=== PATIENT | male | born 1935 | race Caucasian/White ===

== ENCOUNTER → 2018-08-22 | Outpatient (CLI) | payer MEDICARE, BC ==
--- NOTE | 2018-08-22 13:16 | RAD ---
PQRS Compliance Statement: One or more of the following individualized dose reduction techniques were utilized for this examination: 1. Automated exposure control 2. Adjustment of the mA and/or kV according to patient size 3. Use of iterative reconstruction technique CT LOW DOSE LUNG SCREENING Clinical Indication: COPD Comparison: None. TECHNIQUE: Helical CT imaging of the chest is performed without IV contrast using low-dose technique. Findings: There is a left thyroid goiter measuring 1.9 x 2.6 cm. There is slight substernal extension. No mediastinal or axillary adenopathy. Limited evaluation of the mario without IV contrast, no obvious adenopathy. There is motion artifact in the mediastinum, presumably pulsation artifact. There is mild ectasia of the ascending thoracic aorta, diameter 3.8 cm. There is three-vessel coronary artery disease. Cardiac size normal, no pericardial effusion. There is no pleural effusion. There is moderate opacity dependently on the left in the mid trachea, image 50. There are several tiny calcified granulomas in the lungs. There is moderate emphysema in the bilateral lower lobes. There are bilateral peripheral reticular opacities throughout the lungs with a basilar predominance. These opacities are probably chronic. There is a groundglass nodule in the anterior left upper lobe measuring 7 mm, image 107. There is a groundglass opacity in the lateral left lower lobe that may be due to scarring, image 169. Cholelithiasis. Fatty replacement of the visualized pancreas head. No compression fracture in the thoracic spine. IMPRESSION: 1. Moderate emphysema in the bilateral lower lobes. 2. There is a 7 mm groundglass nodule in the left upper lobe. Recommend CT chest follow-up in 12 months. 3. There are basilar predominant peripheral reticular opacities throughout the lungs, probably chronic. 4. Left thyroid goiter. 5. Ectasia of the ascending thoracic aorta. 6. Cholelithiasis. Electronically signed by: Patric Hardy MD (08/22/2018 1:11 PM) [id number]
== END | disposition home or self-care (01) ==
LOC: CT 10:58
PROVIDERS: ATTEND Family Medicine
DX: J43.9 Emphysema, unspecified (principal); K80.20 Calculus of gallbladder without cholecystitis without obstruction; I25.10 Atherosclerotic heart disease of native coronary artery without angina pectoris; I77.810 Thoracic aortic ectasia; R91.8 Other nonspecific abnormal finding of lung field; E04.1 Nontoxic single thyroid nodule
CPT/HCPCS: G0297

== ENCOUNTER → 2018-09-12 | Outpatient (CLI) | payer MEDICARE, BC ==
--- NOTE | 2018-09-12 15:32 | RAD ---
Thyroid ultrasound, 09/12/2018: HISTORY: Left thyroid goiter on CT scan The thyroid gland was difficult to visualize sonographically in this patient. Its measured portions in the lower neck measured 2.2 x 0.7 x 0.6 cm on the right and 2.5 x 0.8 x 0.9 cm on the left. Correlation with the CT study shows that there is substernal extension on the left which is not visible sonographically. The substernal component demonstrated several calcifications. The visualized components in the lower neck are heterogeneous. There is a rounded 5 mm hypoechoic nodule in the lower pole of the right lobe of the gland. Its margins are smooth. There is considerable internal vascularity. No associated calcifications are evident. No other definite discrete thyroid nodule is identified. IMPRESSION: 1. Substernal extension of the left lobe of the thyroid gland containing calcifications as visualized on the recent CT study. This cannot be evaluated sonographically due to its low position. CT follow-up may be useful to establish stability, if clinically indicated. 2. Heterogeneous thyroid gland with a small hypervascular nodule in the lower pole of the right lobe. Electronically signed by: Wing Gordon MD (09/12/2018 3:29 PM) [facility]
== END | disposition home or self-care (01) ==
LOC: US 10:41
PROVIDERS: ATTEND Family Medicine
DX: E04.1 Nontoxic single thyroid nodule (principal); E07.89 Other specified disorders of thyroid
CPT/HCPCS: 76536

== ENCOUNTER 2019-07-12 12:45 | Emergency (ER) | payer MEDICARE, BC ==
[~2019-07-12] VITALS: Ht 170.2 cm; Wt 63.5 kg
--- NOTE | 2019-07-12 13:06 | PHYS DOC ---
Past History Past Medical History: Diabetes, High Cholesterol, Hypothyroid Past Surgical History: No Surgical History Smoking: Non-smoker Drug Use: None Adult General Chief Complaint Chief Complaint: ABDOMINAL PAIN HPI HPI Patient is a 83-year-old male presents with 3-4 days of lower abdominal pain. No vomiting, some mild nausea. No stool during this time frame, nor flatus. Patient was evaluated by his primary care physician earlier today and had a CT scan already performed that shows an obstruction of the small bowel. Patient has had no previous surgeries. Nothing makes the discomfort better or worse. Pain is currently a 6-7 out of 10. Patient was sent to the emergency department by his primary care physician for admission.[] Review of Systems Review of Systems Constitutional: Denies fever or chills [] Eyes: Denies change in visual acuity, redness, or eye pain [] HENT: Denies nasal congestion or sore throat [] Respiratory: Denies cough or shortness of breath [] Cardiovascular: No chest pain or palpitations[] GI: See history of present illness[] : Denies dysuria or hematuria [] Musculoskeletal: Denies back pain or joint pain [] Integument: Denies rash or skin lesions [] Neurologic: Denies headache, focal weakness or sensory changes [] Endocrine: Denies polyuria or polydipsia [] All other systems were reviewed and found to be within normal limits, except as documented in this note. Current Medications Current Medications Current Medications Medications (Trade) Dose Ordered Sig/[place]upe Start Time Stop Time Status Last Admin Dose Admin Sodium Chloride 1,000 ml @ 100 mls/hr Q10H 07/12/19 12:48 07/12/19 22:47 UNV Physical Exam Physical Exam Constitutional: Well developed, well nourished, no acute distress, non-toxic appearance. [] HENT: Normocephalic, atraumatic, bilateral external ears normal, oropharynx moist, no oral exudates, nose normal. [] Eyes: PERRLA, EOMI, conjunctiva normal, no discharge. [] Neck: Normal range of motion, no tenderness, supple, no stridor. [] Cardiovascular:Heart rate regular rhythm, no murmur [] Lungs & Thorax: Bilateral breath sounds clear to auscultation [] Abdomen: Tympanitic to percussion. Mild lower abdominal tenderness without any rebound, guarding, or rigidity, able to sit up and lie back without any difficulty. No masses, no pulsatile masses. [] Skin: Warm, dry, no erythema, no rash. [] Back: No tenderness, no CVA tenderness. [] Extremities: No tenderness, no cyanosis, no clubbing, ROM intact, no edema. [] Neurologic: Alert and oriented X 3, normal motor function, normal sensory function, no focal deficits noted. [] Psychologic: Affect normal, judgement normal, mood normal. [] EKG EKG [] Radiology/Procedures Radiology/Procedures CT performed earlier today as an outpatient. PROCEDURE: CT ABDOMEN PELVIS WO CONTRAST Examination: CT of the abdomen pelvis without contrast HISTORY: History of abdominal pain, constipation COMPARISON: None available TECHNIQUE: Axial CT images of the abdomen pelvis were performed without contrast. Coronal and sagittal reformats are performed. Exposure: One or more of the following individualized dose reduction techniques were utilized for this examination: 1. Automated exposure control 2. Adjustment of the mA and/or kV according to patient size 3. Use of iterative reconstruction technique FINDINGS: Mild bibasilar lung atelectasis is identified. No evidence of free air identified in the abdomen. The evaluation of the solid organs is limited due to lack of IV contrast. The evaluation of bowel is limited due to lack of oral contrast. The visualized noncontrasted liver, spleen, adrenals grossly appears unremarkable. Multiple gallstones identified within the gallbladder. Possible gallstone or calcification identified in the region of the cystic duct.. The stomach is mildly distended. Multiple dilated and fluid distended small bowel loops identified in the abdomen with at least 2 transition points, one in the right mid abdomen and the other possibly in the left lower quadrant of the abdomen. Closed-loop obstruction is not excluded. The appendix is normal. Feces and gas noted in the colon. Mild fat stranding identified about the small bowel loops. No evidence of intrarenal collecting system calculi or hydronephrosis. Urinary bladder is mildly distended. Moderate degenerative changes identified in the lumbar spine. IMPRESSION: 1. Findings consistent with high-grade small bowel obstruction. Closed-loop obstruction is not completely excluded. Correlate clinically. 2. Cholelithiasis. Gallstone or calcification identified in the cystic duct region.[] Course & Med Decision Making Course & Med Decision Making Pertinent Labs and Imaging studies reviewed. (See chart for details) Emergency department course: Patient arrived, laced in bed, and tolerated exam well. His CT scan performed earlier today was reviewed and as noted above. Findings and plan were discussed with the patient. Consultation was made with the hospitalist service, Dr. Johnston, at [facility]. He graciously accepted the patient for transfer. Patient was transferred in improved condition. Medical decision making: Patient has a small bowel obstruction as noted on CT sc an. He is being transferred for higher level of care.[] Dragon Disclaimer Dragon Disclaimer This electronic medical record was generated, in whole or in part, using a voice recognition dictation system. Departure Departure: Impression: Primary Impression: Small bowel obstruction Disposition: 05 TRANSFER OTHER Condition: IMPROVED Referrals: PALOMO KELLER MD (PCP) MARIA ELENA MARTINES DO Jul 12, 2019 13:06
[2019-07-12 13:23] LABS: BASO # 0.1 x10^3/uL (0.0-0.2); BASO % 1 % (0-3); EOS % 0 % (0-3); HEMATOCRIT 43.9 % (39.0-53.0); HEMOGLOBIN 14.7 g/dL (13.0-17.5); LYMPH # 0.5 x10^3/uL (1.0-4.8); LYMPH % 3 % (24-48); MEAN CORPUSCULAR HEMOGLOBIN 30 pg (25-35); MEAN CORPUSCULAR HGB CONC 33 g/dL (31-37); MEAN CORPUSCULAR VOLUME 91 fL (79-100); MONO # 0.9 x10^3/uL (0.0-1.1); MONO % 6 % (0-9); NEUT # 15.3 x10^3uL (1.8-7.7); NEUT % 91 % (31-73); PLATELET COUNT 285 x10^3/uL (140-400); RED BLOOD COUNT 4.84 x10^6/uL (4.30-5.70); RED CELL DISTRIBUTION WIDTH 13.7 % (11.5-14.5); WHITE BLOOD COUNT 16.8 x10^3/uL (4.0-11.0)
[2019-07-12] MEDS: IV NORMAL SALINE 1,000ML 1,000 ML IV SCH (13:26)
[2019-07-12] MEDS: MORPHINE SULFATE 2 MG/ML DISP.SYRIN. IV/SQ PRN (13:27)
[2019-07-12 13:30] LABS: CALCIUM 9.7 mg/dL (8.5-10.1); CREATININE 1.1 mg/dL (0.7-1.3); GFR 64.2
[2019-07-12 13:35] LABS: ALBUMIN 3.9 g/dL (3.4-5.0); ALBUMIN/GLOBULIN RATIO 1.1 (1.0-1.7); TOTAL BILIRUBIN 1.6 mg/dL (0.2-1.0); TOTAL PROTEIN 7.5 g/dL (6.4-8.2)
[2019-07-12 13:50] VITALS: BP 129/72
[2019-07-12 13:50] LABS: BILIRUBIN,URINE NEG (NEG); CLARITY,URINE CLEAR; COLOR,URINE YELLOW; GLUCOSE,URINE NEG (NEG); NITRITE,URINE NEG (NEG); UROBILINOGEN,URINE 0.2 mg/dL (0.2 mg/dL)
[2019-07-12 13:54] LABS: % BANDS 3 % (0-9); % LYMPHS 4 % (24-48); % MONOS 6 % (0-10); % SEGS 87 % (35-66)
[2019-07-12 13:55] LABS: ANISOCYTOSIS PRESENT; PLT ESTIMATE ADEQUATE (ADEQUATE)
== END 2019-07-12 14:10 | disposition short-term general hospital (02) ==
LOC: ER 12:45
DX: K56.609 Unspecified intestinal obstruction, unspecified as to partial versus complete obstruction (principal); E11.9 Type 2 diabetes mellitus without complications; E78.00 Pure hypercholesterolemia, unspecified; E03.9 Hypothyroidism, unspecified
CPT/HCPCS: 36415; 80053; 81003; 83690; 85007; 85025; 96374; 99285; J2270; J7030

== ENCOUNTER → 2019-07-12 | Outpatient (CLI) | payer MEDICARE, BC ==
--- NOTE | 2019-07-12 12:12 | RAD ---
Examination: CT of the abdomen pelvis without contrast HISTORY: History of abdominal pain, constipation COMPARISON: None available TECHNIQUE: Axial CT images of the abdomen pelvis were performed without contrast. Coronal and sagittal reformats are performed. Exposure: One or more of the following individualized dose reduction techniques were utilized for this examination: 1. Automated exposure control 2. Adjustment of the mA and/or kV according to patient size 3. Use of iterative reconstruction technique FINDINGS: Mild bibasilar lung atelectasis is identified. No evidence of free air identified in the abdomen. The evaluation of the solid organs is limited due to lack of IV contrast. The evaluation of bowel is limited due to lack of oral contrast. The visualized noncontrasted liver, spleen, adrenals grossly appears unremarkable. Multiple gallstones identified within the gallbladder. Possible gallstone or calcification identified in the region of the cystic duct.. The stomach is mildly distended. Multiple dilated and fluid distended small bowel loops identified in the abdomen with at least 2 transition points, one in the right mid abdomen and the other possibly in the left lower quadrant of the abdomen. Closed-loop obstruction is not excluded. The appendix is normal. Feces and gas noted in the colon. Mild fat stranding identified about the small bowel loops. No evidence of intrarenal collecting system calculi or hydronephrosis. Urinary bladder is mildly distended. Moderate degenerative changes identified in the lumbar spine. IMPRESSION: 1. Findings consistent with high-grade small bowel obstruction. Closed-loop obstruction is not completely excluded. Correlate clinically. 2. Cholelithiasis. Gallstone or calcification identified in the cystic duct region. FOR INTERNAL CODING PURPOSES Critical result: Findings discussed with PALOMO KELLER at 07/12/2019 12:02 PM. RESULT CODE: (C) Electronically signed by: Burak Moran MD (07/12/2019 12:09 PM) [facility]
== END | disposition home or self-care (01) ==
LOC: CT 10:34
PROVIDERS: ATTEND Family Medicine
DX: K80.20 Calculus of gallbladder without cholecystitis without obstruction (principal); K56.699 Other intestinal obstruction unspecified as to partial versus complete obstruction; J98.11 Atelectasis; K31.89 Other diseases of stomach and duodenum; M47.816 Spondylosis without myelopathy or radiculopathy, lumbar region
CPT/HCPCS: 74176

== ENCOUNTER 2019-08-15 07:36 | Emergency (ER) | payer MEDICARE, BC ==
[~2019-08-15] VITALS: Ht 172.7 cm; Wt 68.0 kg
[2019-08-15 08:23] LABS: HEMATOCRIT 23.5 % (39.0-53.0); HEMOGLOBIN 7.7 g/dL (13.0-17.5); RED BLOOD COUNT 2.55 x10^6/uL (4.30-5.70); RED CELL DISTRIBUTION WIDTH 14.7 % (11.5-14.5); WHITE BLOOD COUNT 6.1 x10^3/uL (4.0-11.0)
[2019-08-15 08:27] LABS: CALCIUM 8.3 mg/dL (8.5-10.1); CREATININE 0.7 mg/dL (0.7-1.3); GFR 108.2; POTASSIUM 4.3 mmol/L (3.5-5.1)
--- NOTE | 2019-08-15 08:56 | PHYS DOC ---
Past History Past Medical History: COPD, Diabetes, GERD, Hypothyroid Past Surgical History: No Surgical History Additional Past Surgical Histo: CATARACTS, RIGHT LOWER LEG Smoking: Non-smoker Alcohol Use: None Drug Use: None Adult General Chief Complaint Chief Complaint: ABNORMAL LABS HPI HPI Patient is a 83 year old male who presents with low hemoglobin. Moses had a recent bowel resection. He was seen in the clinic by a surgeon yesterday. He was found to have a hemoglobin of 6.9. He has no other complaints at this time. Review of Systems Review of Systems Constitutional: Denies fever or chills [] Eyes: Denies change in visual acuity, redness, or eye pain [] HENT: Denies nasal congestion or sore throat [] Respiratory: Denies cough or shortness of breath [] Cardiovascular: No additional information not addressed in HPI [] GI: Denies abdominal pain, nausea, vomiting, bloody stools or diarrhea [] : Denies dysuria or hematuria [] Musculoskeletal: Denies back pain or joint pain [] Integument: Denies rash or skin lesions [] Neurologic: Denies headache, focal weakness or sensory changes [] Endocrine: Denies polyuria or polydipsia [] All other systems were reviewed and found to be within normal limits, except as documented in this note. Family History Family History No pertinent family medical history was reported Current Medications Current Medications Current medications were reviewed Allergies Allergies Allergies Coded Allergies Type Severity Reaction Last Updated Verified Penicillins Allergy Unknown 07/12/19 Yes Physical Exam Physical Exam Constitutional: Well developed, well nourished, no acute distress, non-toxic appearance. [] HENT: Normocephalic, atraumatic Eyes: EOMI, conjunctiva normal, no discharge. [] Neck: Normal range of motion, no tenderness, supple, no stridor. [] Cardiovascular:Heart rate regular rhythm, Lungs & Thorax: Bilateral breath sounds clear to auscultation [] Abdomen: Bowel sounds normal, soft, no tenderness, no masses, no pulsatile masses. [] Well-healing abdominal wound, dry and well approximated with no [id number] Skin: Warm, dry, no erythema, no rash. [] Extremities: No tenderness, no cyanosis, no clubbing, ROM intact, no edema. [] Neurologic: Alert and oriented X 3, normal motor function, normal sensory function, no focal deficits noted. [] Psychologic: Affect normal, judgement normal, mood normal. [] Current Patient Data Vital Signs Vital Signs Date Time Temp Pulse Resp B/P (MAP) Pulse Ox O2 Delivery O2 Flow Rate FiO2 08/15/19 08:10 98.1 66 18 97 Lab Results Laboratory Tests Test 08/15/19 08:00 White Blood Count 6.1 x10^3/uL (4.0-11.0) Red Blood Count 2.55 x10^6/uL (4.30-5.70) L Hemoglobin 7.7 g/dL (13.0-17.5) L Hematocrit 23.5 % (39.0-53.0) L Mean Corpuscular Volume 92 fL (79-100) Mean Corpuscular Hemoglobin 30 pg (25-35) Mean Corpuscular Hemoglobin Concent 33 g/dL (31-37) Red Cell Distribution Width 14.7 % (11.5-14.5) H Platelet Count 181 x10^3/uL (140-400) Sodium Level 140 mmol/L (136-145) Potassium Level 4.3 mmol/L (3.5-5.1) Chloride Level 104 mmol/L (98-107) Carbon Dioxide Level 32 mmol/L (21-32) Anion Gap 4 (6-14) L Blood Urea Nitrogen 17 mg/dL (8-26) Creatinine 0.7 mg/dL (0.7-1.3) Estimated GFR (Cockcroft-Gault) 108.2 Glucose Level 71 mg/dL (70-99) Calcium Level 8.3 mg/dL (8.5-10.1) L EKG EKG [] Radiology/Procedures Radiology/Procedures [] Course & Med Decision Making Course & Med Decision Making Pertinent Labs and Imaging studies reviewed. (See chart for details) Dr. Luu was contacted by phone. Moses's history, physical and lab results were reviewed. No further intervention was recommended at this time. Dragon Disclaimer Dragon Disclaimer This electronic medical record was generated, in whole or in part, using a voice recognition dictation system. Departure Departure: Impression: Primary Impression: Encounter for medical screening examination Disposition: 01 HOME, SELF-CARE Condition: STABLE Referrals: PALOMO KELLER MD (PCP) Patient Instructions: Medical Screening Exam Additional Instructions: Moses was seen in the emergency department for medical screening exam. No emergency medical condition was found on history physical exam. He did have labs revealed a hemoglobin of 7.7. Dr. Luu, his surgeon, was contacted by phone. He is discharged in stable condition. He was advised follow-up with his primary care doctor as needed for further management. He is also advised to return to the emergency room if he develops new or worsening symptoms. PALOMO VÁSQUEZ MD Aug 15, 2019 08:56
== END 2019-08-15 11:17 | disposition home or self-care (01) ==
LOC: ER 07:36
DX: D64.9 Anemia, unspecified (principal); J44.9 Chronic obstructive pulmonary disease, unspecified; E11.9 Type 2 diabetes mellitus without complications; K21.9 Gastro-esophageal reflux disease without esophagitis; E03.9 Hypothyroidism, unspecified; Z98.49 Cataract extraction status, unspecified eye
CPT/HCPCS: 36415; 80048; 85027; 99284

== ENCOUNTER 2019-08-19 10:15 | Inpatient (IN) | payer MEDICARE, BC ==
[~2019-08-19] VITALS: Ht 170.2 cm; Wt 65.1 kg
--- NOTE | 2019-08-19 10:42 | PHYS DOC ---
Past History Past Medical History: COPD, Diabetes, GERD, Hypothyroid Past Surgical History: No Surgical History Additional Past Surgical Histo: CATARACTS, RIGHT LOWER LEG Smoking: Non-smoker Alcohol Use: None Drug Use: None Adult General Chief Complaint Chief Complaint: OTHER COMPLAINTS [facility] HPI 83-year-old male presents from his care facility with concerns over low hemoglobin. The patient recently had surgery for a bowel blockage. He was in this emergency room a few days ago with low hemoglobin. He was above transfusion threshold of 7. [facility] He presents today because they checked his hemoglobin today and they found it to be below 7. The patient tells me that he is feeling normal. He has no change in symptoms. He does not feel dizzy, short of breath, or have a headache. He denies blood in his stool. Denies fever or chills. Review of Systems Review of Systems Constitutional: Denies fever or chills [] Eyes: Denies change in visual acuity, redness, or eye pain [] HENT: Denies nasal congestion or sore throat [] Respiratory: Denies cough or shortness of breath [] Cardiovascular: No additional information not addressed in HPI [] GI: Denies abdominal pain, nausea, vomiting, bloody stools or diarrhea [] : Denies dysuria or hematuria [] Musculoskeletal: Denies back pain or joint pain [] Integument: Denies rash or skin lesions [] Neurologic: Denies headache, focal weakness or sensory changes [] Endocrine: Denies polyuria or polydipsia [] All other systems were reviewed and found to be within normal limits, except as documented in this note. Allergies Allergies Allergies Coded Allergies Type Severity Reaction Last Updated Verified Penicillins Allergy Unknown 07/12/19 Yes Physical Exam Physical Exam Constitutional: Well developed, well nourished, no acute distress, non-toxic appearance. [] HENT: Normocephalic, atraumatic, bilateral external ears normal, oropharynx moist, no oral exudates, nose normal. [] Eyes: PERRLA, EOMI, conjunctiva normal, no discharge. [] Neck: Normal range of motion, no tenderness, supple, no stridor. [] Cardiovascular:Heart rate regular rhythm, no murmur [] Lungs & Thorax: Bilateral breath sounds clear to auscultation [] Abdomen: Bowel sounds normal, soft, no tenderness, no masses, no pulsatile masses. [] Skin: Warm, dry, no erythema, no rash. [] Back: No tenderness, no CVA tenderness. [] Extremities: No tenderness, no cyanosis, no clubbing, ROM intact, 3+ pitting edema to the knees bilaterally. [] Neurologic: Alert and oriented X 3, normal motor function, normal sensory function, no focal deficits noted. [] Psychologic: Affect normal, judgement normal, mood normal. [] Current Patient Data Vital Signs Vital Signs Date Time Temp Pulse Resp B/P (MAP) Pulse Ox O2 Delivery O2 Flow Rate FiO2 08/19/19 10:33 97.8 77 18 113/62 (79) 98 Room Air EKG EKG [] Radiology/Procedures Radiology/Procedures [] Course & Med Decision Making Course & Med Decision Making Pertinent Labs and Imaging studies reviewed. (See chart for details) The patient's labs are remarkable for anemia. His hemoglobin was 8.5. This is significantly better than his previous visit to the ER. There must have been a lab error at his care facility. His proBNP is 1700. I have no previous for comparison. By exam, he does have moderate to significant peripheral edema. This may be normal for this patient. He is not having any symptoms of CHF other than the fluid. I spoke with Dr. Dan and he would like to go ahead and admit the patient for CHF and further evaluation. We'll start him on 20 mg of Lasix IV. Dragon Disclaimer Dragon Disclaimer This electronic medical record was generated, in whole or in part, using a voice recognition dictation system. Departure Departure: Impression: Primary Impression: CHF (congestive heart failure) Additional Impression: Anemia Disposition: ADMITTED INPATIENT Admitting Physician: Wesly Dan Condition: STABLE Referrals: PALOMO KELLER MD (PCP) Problem Qualifiers HAIR LEO DO Aug 19, 2019 10:42
[2019-08-19 11:12] LABS: BASO % 1 % (0-3); EOS # 0.1 x10^3/uL (0.0-0.7); EOS % 1 % (0-3); HEMATOCRIT 26.1 % (39.0-53.0); HEMOGLOBIN 8.5 g/dL (13.0-17.5); LYMPH # 0.7 x10^3/uL (1.0-4.8); LYMPH % 9 % (24-48); MEAN CORPUSCULAR HEMOGLOBIN 30 pg (25-35); MEAN CORPUSCULAR HGB CONC 33 g/dL (31-37); MEAN CORPUSCULAR VOLUME 93 fL (79-100); MONO # 0.6 x10^3/uL (0.0-1.1); MONO % 7 % (0-9); NEUT # 6.5 x10^3uL (1.8-7.7); NEUT % 82 % (31-73); PLATELET COUNT 179 x10^3/uL (140-400); RED BLOOD COUNT 2.83 x10^6/uL (4.30-5.70); RED CELL DISTRIBUTION WIDTH 14.9 % (11.5-14.5); WHITE BLOOD COUNT 7.9 x10^3/uL (4.0-11.0)
[2019-08-19 11:17] LABS: CALCIUM 8.5 mg/dL (8.5-10.1); CREATININE 0.6 mg/dL (0.7-1.3); GFR 129.3; POTASSIUM 4.6 mmol/L (3.5-5.1)
[2019-08-19 11:23] LABS: ALBUMIN/GLOBULIN RATIO 0.6 (1.0-1.7); TOTAL BILIRUBIN 0.2 mg/dL (0.2-1.0); TOTAL PROTEIN 5.6 g/dL (6.4-8.2)
[2019-08-19] MEDS ORDERED: FUROSEMIDE 40 MG/4 ML VIAL IVP ONE (12:00)
[2019-08-19 13:17] LABS: BILIRUBIN,URINE NEG (NEG); CLARITY,URINE CLEAR; COLOR,URINE YELLOW; GLUCOSE,URINE NEG (NEG)
[2019-08-19 13:18] LABS: BACTERIA,URINE 0 /HPF (0-FEW); NITRITE,URINE NEG (NEG); SQUAMOUS EPITHELIAL CELL,UR FEW /LPF; UROBILINOGEN,URINE 0.2 mg/dL (0.2 mg/dL); WBC,URINE OCC /HPF (0-4)
[2019-08-19 13:49] VITALS: BP 124/62
[2019-08-19] MEDS ORDERED: IPRA3AMP29 NEB (14:35)
[2019-08-19] MEDS ORDERED: SENN8.8S5 PO (14:35)
[2019-08-19] MEDS ORDERED: TRAM50TA PO (14:35)
[2019-08-19] MEDS ORDERED: DOXA4TAB3 PO (14:35)
[2019-08-19] MEDS ORDERED: CITA10TA8 PO (14:35)
[2019-08-19] MEDS ORDERED: POLY17PO5 PO (14:35)
[2019-08-19] MEDS ORDERED: TAMS0.4C97 PO (14:35)
[2019-08-19] MEDS ORDERED: BENZ1LOZ4 MM (14:35)
[2019-08-19] MEDS ORDERED: SIMV40TA18 PO (14:35)
[2019-08-19] MEDS ORDERED: METF500T16 PO (14:35)
[2019-08-19] MEDS ORDERED: PANT40TA5 PO (14:35)
[2019-08-19] MEDS ORDERED: LEVO100T5 PO (14:35)
[2019-08-19] MEDS ORDERED: MULT-245 PO (14:35)
[2019-08-19] MEDS ORDERED: INSU100I13 SQ (14:35)
[2019-08-19] MEDS ORDERED: ACET325T9 PO (14:35)
[2019-08-19] MEDS ORDERED: BENZOCAINE/MENTHOL LOZNGE 18'S BOX. MM PRN (15:15)
[2019-08-19] MEDS ORDERED: traMADol 50 MG TABLET PO PRN (15:15)
[2019-08-19] MEDS ORDERED: ACETAMINOPHEN 325 MG TABLET PO PRN (15:15)
[2019-08-19 15:50] VITALS: BP 107/55
[2019-08-19] MEDS: IPRATRPIUM/ALBUTEROL 0.5/2.5MG 3 ML NEBU. NEB SCH ×2 (16:00→20:33)
--- NOTE | 2019-08-19 16:23 | HP ---
ADMIT DATE: 08/19/2019 HISTORY OF PRESENT ILLNESS: The patient is an 83-year-old male patient currently at [facility] for continued rehabilitation after a prolonged admission to [facility] for small-bowel obstruction. He apparently has lab work done there, which showed that his hemoglobin was 6.5 and therefore, the patient was transferred to [facility] Emergency Room to confirm the lab and to transfuse him if need be. On arrival to the Emergency Room, actually his hemoglobin was found to be 8.5, hematocrit 26; however, he was found to have marked generalized anasarca and his albumin was only 2 grams and therefore, he was admitted for further evaluation and treatment. The patient has dysphagia and he is actually on a pureed diet. PAST MEDICAL HISTORY: Significant for bronchial asthma, cholelithiasis, type 2 diabetes mellitus, chronic obstructive pulmonary disease, hypothyroidism, hyperlipidemia, benign prostatic hypertrophy. He apparently was admitted recently with small-bowel obstruction, treated initially with nasogastric tube to low intermittent suction and despite attempt to treat the obstruction conservatively, he eventually underwent exploratory laparotomy with a release of small bowel obstruction and small bowel resection. His postoperative course was complicated by altered mental status, anorexia, treated with TPN. Once stabilized, he was admitted to [facility] to continue the process of rehabilitation. PAST SURGICAL HISTORY: Significant for bilateral cataract extraction and most recently exploratory laparotomy with release of small bowel obstruction and small bowel resection. FAMILY HISTORY: Positive for hypertension. SOCIAL HISTORY: He is , lives with his . He has a son and a daughter. He never smoked, does not drink alcohol. 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 ALLERGIES: He is allergic to PENICILLIN. MEDICATIONS: He is currently on ipratropium bromide and albuterol sulfate by nebulizer 4 times a day, tamsulosin 0.4 mg at bedtime, simvastatin 40 mg at bedtime, doxazosin mesylate 4 mg once a day, tramadol 50 mg every 6 hours, Tylenol 500 mg every 6 hours as needed, citalopram hydrobromide for Celexa 10 mg daily, sore throat lozenges 1 every 2 hours as needed, polyethylene glycol 17 grams daily, senna 1 tablet twice a day, Protonix 40 mg once a day, metformin 500 mg twice a day. He is on Lantus 8 units at bedtime, levothyroxine 100 mcg once a day, multivitamin 1 tablet once a day. REVIEW OF SYSTEMS: As per history of present illness. PHYSICAL EXAMINATION: GENERAL: On arrival to the Emergency Room, the patient looked pale, but no jaundice, cyanosis or thyromegaly. No generalized anasarca. VITAL SIGNS: His heart rate was 77, blood pressure was 113/62, temperature was 97.8, respiratory rate was 18 and oxygen saturation was 98% on room air. HEAD, EYES, EARS, NOSE AND THROAT: Showed normocephalic, atraumatic. NECK: Supple. CARDIAC: Normal first and second heart sounds. No gallop or murmur. CHEST: Clear to auscultation. No crepitation or rhonchi. ABDOMEN: Distended, soft, nontender. No guarding or rigidity. No organomegaly. All hernial orifice intact. Bowel sounds normal. NEUROLOGIC: He is awake, alert, responding appropriately. All cranial nerves intact. EXTREMITIES: He moves extremities without difficulty. He ambulates with a walker. LABORATORY DATA: His lab work on arrival showed a serum sodium 140, potassium 4.6, chloride 104, bicarbonate 32, anion gap of 4, BUN 17, creatinine 0.6, estimated GFR was 129 mL per minute. His glucose was 90, calcium was 8.5. Total bilirubin, AST, ALT were normal. Alkaline phosphatase slightly elevated. His BNP was 1747. Total protein was 5.6, albumin 2. His urinalysis showed the urine was yellow, clear with a pH of 7, specific gravity 1.020. The urine was negative for protein, glucose, ketones. He has a trace of blood, negative for nitrite and leukocyte esterase. There are 1-2 rbc's, occasional wbc's, and no bacteria. His white cell count was 7900, hemoglobin was 8.5, hematocrit 26, MCV 93, and platelet count of 179. ASSESSMENT: The patient was sent from [facility] again for what seemed to be anemia with hemoglobin of 6.5, however, repeat lab showed his hemoglobin was 8.5, hematocrit 26.1; however, he was found to have generalized anasarca and generalized severe malnutrition with serum albumin is only 2 g/dL. He has marked swelling of both lower extremities. He has prolonged stay at the [facility]. PLAN: My plan is to arrange for bilateral venous Doppler ultrasound. I will start him also on 25 grams of albumin twice a day with IV Lasix. I will get also a dietitian as well as PT, OT and we will decide the further management accordingly. I have reconciled all his medication. MALIKA WARE MD DR: JASKARAN/radha JOB#: [id number] / [id number]
--- NOTE | 2019-08-19 16:27 | RAD ---
EXAM: Bilateral lower extremity venous Doppler. HISTORY: Bilateral lower extremity pain/swelling. COMPARISON: None. FINDINGS: Grayscale and Doppler analysis of the both lower extremity deep venous systems was performed with graded compression and augmentation. The common femoral, greater saphenous, superficial femoral, popliteal and calf veins were assessed. There is no evidence of deep venous thrombosis. Subcutaneous edema is noted. IMPRESSION: 1. No evidence of deep venous thrombosis. Electronically signed by: Chandana Longoria MD (08/19/2019 4:24 PM) [facility]
[2019-08-19] MEDS: metFORMIN 500 MG TABLET PO SCH (16:46)
[2019-08-19 20:23] VITALS: BP 114/58
[2019-08-19] MEDS: SIMVASTATIN 40 MG TABLET. PO SCH (20:29)
[2019-08-19] MEDS: TAMSULOSIN 0.4 MG CAP.ER.24H. PO SCH (20:29)
[2019-08-19] MEDS: SENNOSIDES 8.6 MG TABLET PO SCH (20:29)
[2019-08-19] MEDS: INSULIN GLARGINE SYRINGE. SQ SCH (20:29)
[2019-08-19] MEDS ORDERED: ALBUMIN HUMAN 25% 50 ML IV SCH (21:00)
[2019-08-19] MEDS: ACETAMINOPHEN 325 MG TABLET PO PRN (21:04)
[2019-08-19] MEDS: diphenhydrAMINE HCL 25 MG CAPSULE PO PRN (22:49)
[2019-08-19] MEDS ORDERED: HYDROCORTISONE SOD SUCC/PF 100 MG/2 ML VIAL. IVP ONE (23:00)
[2019-08-19 23:29] VITALS: BP 106/60
[2019-08-20] MEDS: IPRATRPIUM/ALBUTEROL 0.5/2.5MG 3 ML NEBU. NEB SCH ×4 (05:28→20:28)
[2019-08-20 05:34] VITALS: BP 109/65
[2019-08-20] MEDS: LEVOTHYROXINE 100 MCG TABLET PO SCH (05:36)
[2019-08-20 06:40] LABS: HEMATOCRIT 24.6 % (39.0-53.0); HEMOGLOBIN 8.1 g/dL (13.0-17.5); RED BLOOD COUNT 2.69 x10^6/uL (4.30-5.70); RED CELL DISTRIBUTION WIDTH 14.5 % (11.5-14.5); WHITE BLOOD COUNT 9.1 x10^3/uL (4.0-11.0)
[2019-08-20 06:49] LABS: CREATININE 0.6 mg/dL (0.7-1.3); GFR 129.3; POTASSIUM 4.3 mmol/L (3.5-5.1)
[2019-08-20] MEDS: PANTOPRAZOLE 40 MG TABLET. PO SCH (10:01)
[2019-08-20] MEDS: DOXAZOSIN MESYLATE 4 MG TABLET PO SCH (10:01)
[2019-08-20] MEDS: MULTIVITAMIN with MINERAL TABLET. PO SCH (10:01)
[2019-08-20] MEDS: POLYETHYLENE GLYCOL 3350 17 GM PACKET. PO SCH (10:01)
[2019-08-20] MEDS: metFORMIN 500 MG TABLET PO SCH ×2 (10:01→16:58)
[2019-08-20] MEDS: SENNOSIDES 8.6 MG TABLET PO SCH ×2 (10:01→21:04)
[2019-08-20] MEDS: CITALOPRAM 10 MG TABLET. PO SCH (10:01)
[2019-08-20] MEDS: FUROSEMIDE 20 MG/2 ML VIAL IVP SCH ×2 (10:18→14:31)
[2019-08-20 11:00] VITALS: BP 99/62
[2019-08-20 15:02] VITALS: BP 102/51
[2019-08-20 19:14] VITALS: BP 98/47
[2019-08-20] MEDS: SIMVASTATIN 40 MG TABLET. PO SCH (21:03)
[2019-08-20] MEDS: ACETAMINOPHEN 325 MG TABLET PO PRN (21:04)
[2019-08-20] MEDS: TAMSULOSIN 0.4 MG CAP.ER.24H. PO SCH (21:04)
[2019-08-20] MEDS: INSULIN GLARGINE SYRINGE. SQ SCH (21:05)
[2019-08-20 23:46] VITALS: BP 94/50
[2019-08-21] VITALS (9 sets, daily range): BP systolic 65–118; BP diastolic 56–66
--- NOTE | 2019-08-21 03:31 | PN ---
DATE: 08/20/2019 SUBJECTIVE: The patient is resting, slightly propped up in bed, in no apparent respiratory distress. He is awake, alert. On questioning him, he denied any complaint. Unfortunately, he apparently had what seemed to be an allergic reaction to albumin infusion with a skin rash that started in his upper back and extended to the lower abdomen, groin and legs. Benadryl was ordered, given. He was also given 100 mg of IV hydrocortisone. During the episode, his oxygen saturation dropped down to 80%; that has improved to 96% on 5 liters of oxygen. OBJECTIVE: GENERAL: When I saw him today he looked well, was clearly in no apparent respiratory distress, slightly pale but no jaundice, cyanosis or thyromegaly. No jugular venous distention. No limb edema. VITAL SIGNS: His heart rate was 71, blood pressure was 102/51, temperature was 97.7, respiratory rate 20 and oxygen saturation was 98%. HEAD, EYES, EARS, NOSE AND THROAT: Normocephalic, atraumatic. NECK: Supple. HEART: Showed normal first and second sounds. No gallop, rub or murmur. CHEST: Clear to auscultation. No crepitation or rhonchi. ABDOMEN: Distended, soft, nontender. No guarding or rigidity. No organomegaly. All hernial orifices were intact. Bowel sounds normal. NEUROLOGIC: He was awake, alert, responding appropriately. All cranial nerves are intact. He moves his extremities without difficulty. Examination of the extremities showed there is no clubbing or cyanosis, but bilateral lower limb edema that is slightly better. His intake over the last 24 hours was 480, no output was recorded. LABORATORY DATA: His lab work this morning showed serum sodium 140, potassium 4.3, chloride 104, bicarbonate 31, anion gap of 5, BUN 20, creatinine 0.6. Estimated GFR was 129 mL per minute. His glucose 178, calcium was 8. Serum ferritin was 157 ng/mL. His serum iron, TIBC and iron saturation are all low, consistent with anemia of chronic disease. Urinalysis is essentially unremarkable. His white cell count was 9100, hemoglobin 8.1, hematocrit 24, MCV 92 and platelet count of 172,000. His sedimentation rate was 15 and C-reactive protein was 8.6 mg/L. ASSESSMENT: Anemia that is normochromic, normocytic. The patient had hemoglobin of 6.5 at [facility]; however, on arrival to our Emergency Room, it was 8.5 and hematocrit 26, and this morning his hemoglobin was again 8.1 and hematocrit 24.6. Severe protein-calorie malnutrition with generalized anasarca. Unfortunately, the patient apparently developed allergic reaction to human albumin. He did receive 2 units yesterday together with IV Lasix. He has obviously multiple other medical problems including bronchial asthma, type 2 diabetes mellitus, chronic obstructive pulmonary disease, hypothyroidism, hyperlipidemia, benign prostatic hypertrophy. PLAN: My plan is to continue with IV Lasix today and hopefully tomorrow morning we can discharge him back to continue the process of rehabilitation at [facility]. MALIKA WARE MD DR: JASKARAN/radha JOB#: [id number] / [id number]
[2019-08-21] MEDS: diphenhydrAMINE HCL 25 MG CAPSULE PO PRN (03:38)
[2019-08-21] MEDS: IPRATRPIUM/ALBUTEROL 0.5/2.5MG 3 ML NEBU. NEB SCH ×2 (04:54→11:23)
[2019-08-21] MEDS: LEVOTHYROXINE 100 MCG TABLET PO SCH (05:01)
[2019-08-21 06:32] LABS: HEMATOCRIT 20.4 % (39.0-53.0); RED BLOOD COUNT 2.23 x10^6/uL (4.30-5.70); RED CELL DISTRIBUTION WIDTH 15.2 % (11.5-14.5); WHITE BLOOD COUNT 6.8 x10^3/uL (4.0-11.0)
[2019-08-21 06:35] LABS: HEMOGLOBIN 6.8 g/dL (13.0-17.5)
[2019-08-21 06:39] LABS: ALBUMIN 1.8 g/dL (3.4-5.0); ALBUMIN/GLOBULIN RATIO 0.6 (1.0-1.7); CREATININE 0.6 mg/dL (0.7-1.3); GFR 129.3; POTASSIUM 3.6 mmol/L (3.5-5.1); TOTAL BILIRUBIN 0.2 mg/dL (0.2-1.0); TOTAL PROTEIN 4.7 g/dL (6.4-8.2)
[2019-08-21] MEDS ORDERED: diphenhydrAMINE 50 MG/ML VIAL IVP PRN (08:00)
[2019-08-21] MEDS: FUROSEMIDE 20 MG/2 ML VIAL IVP SCH ×2 (08:04→13:50)
[2019-08-21] MEDS: ACETAMINOPHEN 325 MG TABLET PO PRN (08:05)
[2019-08-21] MEDS: metFORMIN 500 MG TABLET PO SCH (08:05)
[2019-08-21] MEDS: PANTOPRAZOLE 40 MG TABLET. PO SCH (08:06)
[2019-08-21] MEDS: MULTIVITAMIN with MINERAL TABLET. PO SCH (08:06)
[2019-08-21] MEDS: CITALOPRAM 10 MG TABLET. PO SCH (08:06)
[2019-08-21] MEDS: SENNOSIDES 8.6 MG TABLET PO SCH (08:06)
[2019-08-21] MEDS: DOXAZOSIN MESYLATE 4 MG TABLET PO SCH (08:06)
[2019-08-21] MEDS: POLYETHYLENE GLYCOL 3350 17 GM PACKET. PO SCH (08:07)
[2019-08-21 13:28] LABS: FECAL OB PT NEGATIVE (NEG)
[2019-08-21 13:54] LABS: HEMATOCRIT 27.9 % (39.0-53.0)
--- NOTE | 2019-08-21 14:47 | DISCH ---
DISCHARGE ORDERS DISCHARGE DATE: Aug 21, 2019 FINAL DIAGNOSIS anemia of chronic disease severe protein calorie malnutrition CONDITION AT DISCHARGE: Stable Code Status: Full SNF STAY <30 DAYS: Yes POST DISCHARGE ORDERS: ACTIVITY ORDERS: Activity as tolerated DIET AFTER DISCHARGE: DISCHARGE MEDICATIONS: Home Meds Reported Medications Tramadol Hcl (TRAMADOL HCL) 50 Mg Tablet, 50 MG PO PRN Q6HRS PRN for PAIN, % 08/19/19 Tamsulosin Hcl (FLOMAX) 0.4 Mg Cap.er.24h, 1 CAP PO HS for URINE RETENTION, % 08/19/19 Benzocaine/Menthol (SORE THROAT LOZENGE) 1 Each Lozenge, 1 EACH MM PRN Q2HR PRN for SORE THROAT, LOZENGE 08/19/19 Simvastatin (SIMVASTATIN) 40 Mg Tablet, 1 TAB PO QHS for HIGH CHOLESTEROL, % 08/19/19 Sennosides (SENNA) 8.8 Mg/5 Ml Syrup, 8.8 MG PO BID for CONSTIPATION, % 08/19/19 Pantoprazole Sodium (PANTOPRAZOLE SODIUM) 40 Mg Tablet.dr, 1 TAB PO DAILY for GERD, % 08/19/19 Multivitamin (MULTI VITAMIN DAILY) 1 Each Tablet, 1 TAB PO DAILY for SUPPLEMENT, % 0 Refills 08/19/19 Polyethylene Glycol 3350 (MIRALAX) 17 Gm Powd.pack, 1 PACKET PO DAILY for constipation, % 0 Refills dissolve in water 08/19/19 Metformin Hcl (METFORMIN HCL) 500 Mg Tablet, 1 TAB PO BID for DIABETES, % 08/19/19 Levothyroxine Sodium (LEVOTHYROXINE SODIUM) 100 Mcg Tablet, 1 TAB PO DAILY for HYPOTHYROID, % 08/19/19 Insulin Glargine,Hum.rec.anlog (LANTUS SOLOSTAR) 100 Unit/1 Ml Insuln.pen, 8 UNIT SQ HS for DIABETES, % 08/19/19 Ipratropium/Albuterol Sulfate (DUONEB 0.5-3(2.5) MG/3 ML) 3 Ml Ampul.neb, 3 ML NEB QID for COPD, % 08/19/19 Doxazosin Mesylate (DOXAZOSIN MESYLATE) 4 Mg Tablet, 1 TAB PO DAILY for HIGH BLOOD PRESSURE, % 08/19/19 Citalopram Hydrobromide (CELEXA) 10 Mg Tablet, 10 MG PO DAILY for DEPRESSION, % 08/19/19 Acetaminophen (TYLENOL) 325 Mg Tablet, 500 MG PO PRN Q6HRS PRN for PAIN / TEMP, % 08/19/19 MALIKA WARE MD Aug 21, 2019 14:47
--- NOTE | 2019-08-21 17:14 | DS ---
DATE OF DISCHARGE: 08/21/2019 HOSPITAL COURSE: The patient is an 83-year-old male patient who was again admitted and brought to the Emergency Room with abnormal lab work as his hemoglobin was 6.5 and therefore he was transferred to [facility] Emergency Room to confirm the lab and transfuse him if need be. On arrival to the Emergency Room, his hemoglobin was actually 8.5, hematocrit 26; however, he was found to have marked generalized anasarca. His albumin was only 2 grams and therefore, he was admitted for further evaluation and treatment. The patient has dysphagia for which he is actually on a pureed diet. I did urinalysis, which showed no evidence of any proteinuria. I also checked his liver function tests and his prothrombin time, INR are normal. His liver enzymes are normal. His ammonia was only 30. We tried to treat him with human albumin; however, he reacted as severe allergic reaction for which he was treated with Benadryl and hydrocortisone. We discontinued human albumin all together. We continued to treat him with IV Lasix. Surprisingly, his H and H has drifted again, although there was no obvious evidence of bleeding. No hematuria. No hematemesis, melena or hematochezia. His hemoglobin this morning was 6.8, hematocrit 20, and did receive 1 unit of packed RBCs and his hemoglobin has risen up to 9 and 27.9. His iron studies showed that he has enough iron reserve and his vitamin B12 was normal. In fact, his serum ferritin was 157 ng/mL and B12 was 627 pg/mL, which is well within normal range and the patient therefore was discharged back to [facility] to continue the process of rehabilitation. We will obviously monitor his H and H and if need be, a transfusion again. He will need to have high protein diet as the patient is probably malnourished and as he is not losing protein in the urine and his liver function tests are normal, indicating does not have advanced liver disease. PHYSICAL EXAMINATION: GENERAL: When I saw him this afternoon, he looked well and was clearly in no apparent respiratory distress. He was pale, cachectic, but no jaundice, cyanosis or thyromegaly. No jugular venous distention. No limb edema. VITAL SIGNS: His heart rate was 82, blood pressure was 106/62, temperature 97.5, respiratory rate was 18, and oxygen saturation 100% on 2 liters of oxygen. HEAD, EYES, EARS, NOSE AND THROAT: Showed normocephalic, atraumatic. NECK: Supple. HEART: Showed normal first and second heart sounds. No gallop or murmur. CHEST: Clear to auscultation. No crepitation or rhonchi. ABDOMEN: Distended, soft, nontender. NEUROLOGIC: He was awake, alert, responding appropriately. All cranial nerves are intact. He moves extremities without difficulty. He ambulates with a walker. His intake over the last 24 hours was 770, no output was recorded. LABORATORY DATA: His lab work this morning showed a serum sodium 141, potassium 3.6, chloride 105, bicarbonate 35, anion gap of 1, BUN 23, creatinine 0.6, estimated GFR was 129 mL per minute. His glucose was 75, calcium was 8. Total bilirubin, AST, ALT, alkaline phosphatase were normal. Ammonia was 30. Total protein was 4.7, albumin was 1.8. His prothrombin time and INR are normal. Urinalysis was essentially unremarkable and his stool for occult blood was negative. DISCHARGE MEDICATIONS: The patient was discharged back to [facility] to continue with all his other medications including Tylenol 500 mg every 6 hours, sore throat lozenges 1 every 2 hours as needed, citalopram hydrobromide for Celexa 10 mg once a day, doxazosin 4 mg daily. He is on Lantus 8 units at bedtime, ipratropium bromide, albuterol sulfate 3 mL by nebulizer 4 times a day, levothyroxine sodium 100 mcg once a day, metformin 500 mg twice a day, multivitamin 1 tablet once a day, Protonix 40 mg once a day, polyethylene glycol 17 grams daily, senna 1 tablet twice a day, simvastatin 40 mg at bedtime, tamsulosin for Flomax 0.4 mg daily and tramadol 50 mg every 6 hours. FINAL DISCHARGE DIAGNOSES: Anemia that is normochromic, normocytic, for which he received 1 unit of packed RBCs. Other medical problems include severe protein-calorie malnutrition with serum albumin is only 1.8 g/dL. Other medical problems include: A. Bronchial asthma. B. Cholecystitis. C. Type 2 diabetes mellitus. D. Chronic obstructive pulmonary disease. E. Hypothyroidism. F. Hyperlipidemia. D. Benign prostatic hypertrophy. MALIKA WARE MD DR: Shola JOB#: [id number] / [id number]
== END 2019-08-21 16:25 | DRG 811 ==
LOC: ER 10:15 → 1 SOUTH 12:08
PROVIDERS: ADMIT Internal Medicine; ATTEND Internal Medicine
PROC: 30233N1 Transfusion of Nonautologous Red Blood Cells into Peripheral Vein, Percutaneous Approach (ICD-10-PCS; principal; 2019-08-21)
DX: D64.89 Other specified anemias (principal); E43 Unspecified severe protein-calorie malnutrition; K56.609 Unspecified intestinal obstruction, unspecified as to partial versus complete obstruction; J44.9 Chronic obstructive pulmonary disease, unspecified; E11.9 Type 2 diabetes mellitus without complications; E03.9 Hypothyroidism, unspecified; K81.9 Cholecystitis, unspecified; K21.9 Gastro-esophageal reflux disease without esophagitis; Z88.0 Allergy status to penicillin; I50.9 Heart failure, unspecified; E78.5 Hyperlipidemia, unspecified; N40.0 Benign prostatic hyperplasia without lower urinary tract symptoms; Z98.42 Cataract extraction status, left eye; Z98.41 Cataract extraction status, right eye; Z82.49 Family history of ischemic heart disease and other diseases of the circulatory system; Z68.22 Body mass index [BMI] 22.0-22.9, adult; R13.10 Dysphagia, unspecified
CPT/HCPCS: 36415; 80048; 80053; 81001; 82140; 82274; 82607; 82728; 82947; 83540; 83550; 83880; 84443; 85014; 85018; 85025; 85027; 85610; 85651; 86140; 86850; 86900; 86901; 86920; 93970; 94640; 96374; J1200; J1815; J1940; J7620; P9016; P9046; Q0163; 97110; 97116; 97530; 97535; 99285-25

== ENCOUNTER → 2019-10-03 | Outpatient (CLI) | payer MEDICARE, BC ==
[2019-08-21 14:39] VITALS: BP 105/56
[~2019-10-03] MED LIST: ACET325T9 PO; BENZ1LOZ4 MM; CITA10TA8 PO; DOXA4TAB3 PO; INSU100I13 SQ; IPRA3AMP29 NEB; LEVO100T5 PO; METF500T16 PO; MULT-245 PO; PANT40TA5 PO; POLY17PO5 PO; SENN8.8S5 PO; SIMV40TA18 PO; TAMS0.4C97 PO; TRAM50TA PO
--- NOTE | 2019-10-03 15:22 | RAD ---
CHEST PA LATERAL History: Pneumonitis due to inhalation of food and vomiting. Comparison: CT chest without contrast August 22, 2018.. Findings: The cardiomediastinal silhouette is normal. There are diffuse interstitial opacities in the lungs. A component of this is likely chronic. Lungs are hyperexpanded. No pleural effusion or pneumothorax is seen. There is no acute bone abnormality. IMPRESSION: Diffuse interstitial opacities in the lungs may be acute interstitial edema or pneumonia superimposed on chronic interstitial scarring. Electronically signed by: Patric Hardy MD (10/03/2019 3:19 PM) [id number]
== END | disposition home or self-care (01) ==
LOC: DXRAD 14:08
PROVIDERS: ATTEND Family Medicine
DX: J69.0 Pneumonitis due to inhalation of food and vomit (principal)
CPT/HCPCS: 71046

== ENCOUNTER 2019-11-02 13:10 | Emergency (ER) | payer MEDICARE, BC ==
[~2019-11-02] VITALS: Ht 170.2 cm; Wt 57.6 kg
[2019-11-02 14:13] LABS: BASO % 1 % (0-3); CREATININE 0.8 mg/dL (0.7-1.3); EOS # 0.3 x10^3/uL (0.0-0.7); EOS % 5 % (0-3); GFR 92.5; HEMATOCRIT 33.4 % (39.0-53.0); LYMPH # 1.4 x10^3/uL (1.0-4.8); LYMPH % 21 % (24-48); MEAN CORPUSCULAR HEMOGLOBIN 30 pg (25-35); MEAN CORPUSCULAR HGB CONC 33 g/dL (31-37); MEAN CORPUSCULAR VOLUME 91 fL (79-100); MONO # 0.5 x10^3/uL (0.0-1.1); MONO % 8 % (0-9); NEUT # 4.3 x10^3uL (1.8-7.7); NEUT % 66 % (31-73); PLATELET COUNT 203 x10^3/uL (140-400); POTASSIUM 4.1 mmol/L (3.5-5.1); RED BLOOD COUNT 3.66 x10^6/uL (4.30-5.70); WHITE BLOOD COUNT 6.5 x10^3/uL (4.0-11.0)
[2019-11-02] MEDS ORDERED: IOHEXOL 300 MG/ML 75 ML VIAL. IV ONE (14:15)
[2019-11-02 14:19] LABS: ALBUMIN 3.2 g/dL (3.4-5.0); ALBUMIN/GLOBULIN RATIO 0.9 (1.0-1.7); TOTAL BILIRUBIN 0.3 mg/dL (0.2-1.0); TOTAL PROTEIN 6.9 g/dL (6.4-8.2)
--- NOTE | 2019-11-02 14:23 | PHYS DOC ---
Past History Past Medical History: COPD, Diabetes, GERD, Hypothyroid Past Surgical History: Tonsillectomy, Other Additional Past Surgical Histo: CATARACTS, RIGHT LOWER LEG Smoking: Non-smoker Alcohol Use: None Drug Use: None General Adult EDM: Chief Complaint: ABDOMINAL PAIN HPI: HPI: 84-year-old male presents with sudden onset of a pooching his abdomen. The patient had a bowel obstruction and surgery 4 months ago. He has fully recovered. His scar is well-healed. Between yesterday and today, he noticed that there is a pooch to the left side of his incision site. It is painless. It is soft. Patient has been having bowel movements. He has been able to eat. He denies fever chills. His family just wanted to make sure it was not a problem since it was such a sudden onset. Review of Systems: Review of Systems: Constitutional: Denies fever or chills Eyes: Denies change in visual acuity HENT: Denies nasal congestion or sore throat Respiratory: Denies cough or shortness of breath Cardiovascular: Denies chest pain or edema GI: New onset abdominal mass : Denies dysuria Musculoskeletal: Denies back pain or joint pain Integument: Denies rash Neurologic: Denies headache, focal weakness or sensory changes Endocrine: Denies polyuria or polydipsia Lymphatic: Denies swollen glands Psychiatric: Denies depression or anxiety Heart Score: Risk Factors: Risk Factors: DM, Current or recent (<one month) smoker, HTN, HLP, family history of CAD, obesity. Risk Scores: Score 0 - 3: 2.5% MACE over next 6 weeks - Discharge Home Score 4 - 6: 20.3% MACE over next 6 weeks - Admit for Clinical Observation Score 7 - 10: 72.7% MACE over next 6 weeks - Early Invasive Strategies Current Medications: Current Meds: Current Medications Medications (Trade) Dose Ordered Sig/Guadalupe Start Time Stop Time Status Last Admin Dose Admin Iohexol (Omnipaque 300 Mg/ml) 75 ml 1X ONCE 11/02/19 14:15 11/02/19 14:16 UNV Allergies: Allergies: Allergies Coded Allergies Type Severity Reaction Last Updated Verified albumin human Allergy Severe Shortness of Air 08/20/19 Yes Penicillins Allergy Unknown 07/12/19 Yes Physical Exam: PE: Constitutional: Well developed, well nourished, no acute distress, non-toxic appearance. [] HENT: Normocephalic, atraumatic, bilateral external ears normal, oropharynx moist, no oral exudates, nose normal. [] Eyes: PERRLA, EOMI, conjunctiva normal, no discharge. [] Neck: Normal range of motion, no tenderness, supple, no stridor. [] Cardiovascular:Heart rate regular rhythm, no murmur [] Lungs & Thorax: Bilateral breath sounds clear to auscultation [] Abdomen: Bowel sounds normal, soft, no tenderness, soft mass to the left of the well-healed abdominal incision [] Skin: Warm, dry, no erythema, no rash. [] Back: No tenderness, no CVA tenderness. [] Extremities: No tenderness, no cyanosis, no clubbing, ROM intact, no edema. [] Neurologic: Alert and oriented X 3, normal motor function, normal sensory function, no focal deficits noted. [] Psychologic: Affect normal, judgement normal, mood normal. [] Current Patient Data: Labs: Laboratory Tests Test 11/02/19 13:57 White Blood Count 6.5 x10^3/uL (4.0-11.0) Red Blood Count 3.66 x10^6/uL (4.30-5.70) L Hemoglobin 11.0 g/dL (13.0-17.5) L Hematocrit 33.4 % (39.0-53.0) L Mean Corpuscular Volume 91 fL (79-100) Mean Corpuscular Hemoglobin 30 pg (25-35) Mean Corpuscular Hemoglobin Concent 33 g/dL (31-37) Red Cell Distribution Width 15.0 % (11.5-14.5) H Platelet Count 203 x10^3/uL (140-400) Neutrophils (%) (Auto) 66 % (31-73) Lymphocytes (%) (Auto) 21 % (24-48) L Monocytes (%) (Auto) 8 % (0-9) Eosinophils (%) (Auto) 5 % (0-3) H Basophils (%) (Auto) 1 % (0-3) Neutrophils # (Auto) 4.3 x10^3uL (1.8-7.7) Lymphocytes # (Auto) 1.4 x10^3/uL (1.0-4.8) Monocytes # (Auto) 0.5 x10^3/uL (0.0-1.1) Eosinophils # (Auto) 0.3 x10^3/uL (0.0-0.7) Basophils # (Auto) 0.0 x10^3/uL (0.0-0.2) Sodium Level 141 mmol/L (136-145) Potassium Level 4.1 mmol/L (3.5-5.1) Chloride Level 101 mmol/L (98-107) Carbon Dioxide Level 35 mmol/L (21-32) H Anion Gap 5 (6-14) L Blood Urea Nitrogen 23 mg/dL (8-26) Creatinine 0.8 mg/dL (0.7-1.3) Estimated GFR (Cockcroft-Gault) 92.5 BUN/Creatinine Ratio 29 (6-20) H Glucose Level 139 mg/dL (70-99) H Calcium Level 10.0 mg/dL (8.5-10.1) Total Bilirubin 0.3 mg/dL (0.2-1.0) Aspartate Amino Transferase (AST) 18 U/L (15-37) Alanine Aminotransferase (ALT) 23 U/L (16-63) Alkaline Phosphatase 63 U/L (46-116) Total Protein 6.9 g/dL (6.4-8.2) Albumin 3.2 g/dL (3.4-5.0) L Albumin/Globulin Ratio 0.9 (1.0-1.7) L Vital Signs: Vital Signs Date Time Temp Pulse Resp B/P (MAP) Pulse Ox O2 Delivery O2 Flow Rate FiO2 11/02/19 13:10 97.7 78 18 146/64 (91) 99 EKG: EKG: [] Radiology/Procedures: Radiology/Procedures: [] Impressions: CT scan of the abdomen and pelvis with contrast 11/02/2019 CLINICAL HISTORY: Abdominal pain and swelling. TECHNIQUE: After the intravenous administration of 75 cc of Omnipaque 300, contiguous, 5 mm axial sections were obtained through the abdomen and pelvis. One or more of the following individualized dose reduction techniques were utilized for this study: 1. Automated exposure control. 2. Adjustment of the mA and/or kV according to patient size. 3. Use of iterative reconstruction technique. FINDINGS: Comparison study is dated 07/12/2019. Images through the lung bases demonstrate emphysematous changes bilaterally. Dependent subsegmental atelectasis is seen involving the visualized lungs. There is mild cardiomegaly. The liver, spleen, pancreas, adrenal glands and kidneys are within normal limits. Atherosclerotic calcification of the abdominal aorta is seen. The abdominal aorta tapers normally. Calcified gallstones are seen within the gallbladder. Air and stool are seen throughout the colon. There is no evidence of bowel obstruction. No free fluid or free air is within abdomen. Images through the pelvis demonstrate the urinary bladder distended with urine. The prostate gland is enlarged likely related to BPH. Calcifications are seen within the pelvis consistent with phleboliths. Multiple diverticula are seen throughout the descending and sigmoid colon. No inflammatory changes are seen in the adjacent fat. No free fluid is noted. The small bowel obstruction seen on the previous examination has resolved. Very mild S-shaped curvature of the thoracolumbar spine is seen. Degenerative changes are seen involving the lower thoracic and throughout the lumbar spine along with both hips. IMPRESSION: No acute abnormality is seen. Electronically signed by: Dante Acevedo MD (11/02/2019 3:40 PM) [id number] DICTATED AND SIGNED BY: DANTE ACEVEDO MD DATE: 11/02/19 1540 CC: HAIR LEO DO; PALOMO KELLER MD ~ Course & Med Decision Making: Course & Med Decision Making Pertinent Labs and Imaging studies reviewed. (See chart for details) The patient's labs are unremarkable. His CT of the abdomen and pelvis is read as no acute findings. I had the radiologist look at the images 1 more time to rule out hernia, and he does not see 1. Not sure why that area looks little patched out than normal. The patient does not have very much subcutaneous tissue. He is feeling well so I do not think there is anything else to do. He is stable for discharge at this time. [] Dragon Disclaimer: Dragon Disclaimer: This electronic medical record was generated, in whole or in part, using a voice recognition dictation system. Departure Departure: Impression: Primary Impression: Abdominal mass Qualified Codes: R19.05 - Periumbilic swelling, mass or lump Disposition: HOME, SELF-CARE Condition: STABLE Referrals: PALOMO KELLER MD (PCP) Patient Instructions: Abdominal Pain, [id number] HAIR LEO DO Nov 02, 2019 14:23
[2019-11-02 15:02] VITALS: BP 123/61
--- NOTE | 2019-11-02 15:43 | RAD ---
CT scan of the abdomen and pelvis with contrast 11/02/2019 CLINICAL HISTORY: Abdominal pain and swelling. TECHNIQUE: After the intravenous administration of 75 cc of Omnipaque 300, contiguous, 5 mm axial sections were obtained through the abdomen and pelvis. One or more of the following individualized dose reduction techniques were utilized for this study: 1. Automated exposure control. 2. Adjustment of the mA and/or kV according to patient size. 3. Use of iterative reconstruction technique. FINDINGS: Comparison study is dated 07/12/2019. Images through the lung bases demonstrate emphysematous changes bilaterally. Dependent subsegmental atelectasis is seen involving the visualized lungs. There is mild cardiomegaly. The liver, spleen, pancreas, adrenal glands and kidneys are within normal limits. Atherosclerotic calcification of the abdominal aorta is seen. The abdominal aorta tapers normally. Calcified gallstones are seen within the gallbladder. Air and stool are seen throughout the colon. There is no evidence of bowel obstruction. No free fluid or free air is within abdomen. Images through the pelvis demonstrate the urinary bladder distended with urine. The prostate gland is enlarged likely related to BPH. Calcifications are seen within the pelvis consistent with phleboliths. Multiple diverticula are seen throughout the descending and sigmoid colon. No inflammatory changes are seen in the adjacent fat. No free fluid is noted. The small bowel obstruction seen on the previous examination has resolved. Very mild S-shaped curvature of the thoracolumbar spine is seen. Degenerative changes are seen involving the lower thoracic and throughout the lumbar spine along with both hips. IMPRESSION: No acute abnormality is seen. Electronically signed by: Dante Mayes MD (11/02/2019 3:40 PM) [id number]
== END 2019-11-02 16:10 | disposition home or self-care (01) ==
LOC: ER 13:10
DX: R19.05 Periumbilic swelling, mass or lump (principal); J44.9 Chronic obstructive pulmonary disease, unspecified; E11.9 Type 2 diabetes mellitus without complications; K21.9 Gastro-esophageal reflux disease without esophagitis; E03.9 Hypothyroidism, unspecified; Z98.890 Other specified postprocedural states; Z88.0 Allergy status to penicillin; Z88.8 Allergy status to other drugs, medicaments and biological substances
CPT/HCPCS: 36415; 74177; 80053; 85025; 99285; Q9967

== ENCOUNTER → 2021-03-14 | Outpatient (CLI) | payer MEDICARE, BC ==
[~2021-03-14] MED LIST changes: -PANT40TA5 PO; +PANT40TA6 PO; +SENN8.8S13 PO; -SENN8.8S5 PO
[2021-03-14 19:27] LABS: ALBUMIN 3.7 g/dL (3.4-5.0); ALBUMIN/GLOBULIN RATIO 1.2 (1.0-1.7); CALCIUM 9.2 mg/dL (8.5-10.1); CREATININE 0.9 mg/dL (0.7-1.3); GFR 80.6; POTASSIUM 3.9 mmol/L (3.5-5.1); TOTAL BILIRUBIN 0.4 mg/dL (0.2-1.0); TOTAL PROTEIN 6.7 g/dL (6.4-8.2)
[2021-03-14 20:59] LABS: BASO % 1 % (0-3); EOS # 0.2 x10^3/uL (0.0-0.7); EOS % 3 % (0-3); HEMATOCRIT 31.5 % (39.0-53.0); HEMOGLOBIN 10.4 g/dL (13.0-17.5); LYMPH # 1.5 x10^3/uL (1.0-4.8); LYMPH % 29 % (24-48); MEAN CORPUSCULAR HEMOGLOBIN 30 pg (25-35); MEAN CORPUSCULAR HGB CONC 33 g/dL (31-37); MEAN CORPUSCULAR VOLUME 92 fL (79-100); MONO # 0.5 x10^3/uL (0.0-1.1); MONO % 9 % (0-9); NEUT # 3.2 x10^3uL (1.8-7.7); NEUT % 59 % (31-73); PLATELET COUNT 154 x10^3/uL (140-400); RED BLOOD COUNT 3.43 x10^6/uL (4.30-5.70); RED CELL DISTRIBUTION WIDTH 13.2 % (11.5-14.5); WHITE BLOOD COUNT 5.4 x10^3/uL (4.0-11.0)
[2021-03-14 22:02] LABS: BACTERIA,URINE 0 /HPF (0-FEW); BILIRUBIN,URINE NEG (NEG); CLARITY,URINE CLEAR; COLOR,URINE YELLOW; GLUCOSE,URINE NEG (NEG); NITRITE,URINE NEG (NEG); RBC,URINE 0 /HPF (0-2); SQUAMOUS EPITHELIAL CELL,UR FEW /LPF; UROBILINOGEN,URINE 0.2 mg/dL (0.2 mg/dL); WBC,URINE OCC /HPF (0-4)
[2021-03-15 14:39] LABS: FREE T4 1.12 ng/dL (0.76-1.46); THYROID STIM HORMONE (TSH) 3.378 uIU/mL (0.358-3.740)
== END ==
LOC: LAB 17:54
PROVIDERS: ATTEND Family Medicine
DX: I95.2 Hypotension due to drugs (principal); D62 Acute posthemorrhagic anemia; J98.01 Acute bronchospasm; E03.9 Hypothyroidism, unspecified
CPT/HCPCS: 36415; 80053; 81001; 82550; 83605; 84439; 84443; 84484; 85025